=== PATIENT | male | born 1990 | race Two or more races ===

== ENCOUNTER 2017-06-10 16:17 | Emergency (ER) | payer BC, MEDICAID ==
[~2017-06-10] VITALS: Ht 182.9 cm; Wt 81.6 kg
[2017-06-10 16:20] VITALS: BP_SYST 145
[2017-06-10 18:23] VITALS: BP_SYST 132
== END 2017-06-10 18:23 | disposition home or self-care (01) ==
LOC: SED 16:17
DX: J40 Bronchitis, not specified as acute or chronic (principal); R03.0 Elevated blood-pressure reading, without diagnosis of hypertension; J45.909 Unspecified asthma, uncomplicated
CPT/HCPCS: 99283